=== PATIENT | female | born 1980 | race Hispanic/Latino ===

== ENCOUNTER 2017-10-26 08:54 | Outpatient (CLI) | payer BC ==
[~2017-10-26 08:54] MED LIST: Iopamidol 300 61% 30 ML VIAL ONE
--- NOTE | 2017-10-26 12:05 | RAD ---
HYSTEROSALPINGOGRAM: Date: 10/26/17 HISTORY: Procreative management. Difficulty getting . EXPOSURE: 489.1 mGy*cm^2. 1.1 minute fluoro time. FINDINGS: A hysterosalpingogram was performed in the retrograde fashion. Contrast opacifies a normal appearing endometrium, as well as lower uterine segment. The right fallopian tube has an overall normal appeara nce. There is free spillage of contrast into the right hemipelvis. The left fallopian tube is truncat ed and has a bulbous collection of contrast. The patient does have a history of intervention in the l eft adnexa. IMPRESSION: Patent right fallopian tube with free spillage into the right hemipelvis. POS: [facility]
== END 2017-10-26 08:55 | disposition home or self-care (01) ==
LOC: RAD 08:54
PROVIDERS: ATTEND Obstetrics & Gynecology
DX: Z31.9 Encounter for procreative management, unspecified (principal)
CPT/HCPCS: 58340; 74740

== ENCOUNTER 2019-08-11 12:01 | Emergency (ER) | payer BC ==
[2019-08-11 12:38] LABS: #Basophils 0.1 thou/uL (0.0-0.2); #Eosinphils 0.1 thou/uL (0.0-0.7); #Lymphocytes 3.5 thou/uL (1.20-3.40); #Monocytes 0.6 thou/uL (0.11-0.59); #Neutrophils 3.7 thou/uL (1.40-6.50); %Basophils 1.2 % (0.0-1.0); %Eosinophils 1.8 % (0.0-10.0); Hemoglobin 14.6 g/dL (12.0-16.0); Mean Corpuscular HGB CONC 33.6 g/dL (32.0-36.0); Mean Corpuscular Hemoglobin 29.8 pg (27.0-31.0); Mean Corpuscular Volume 88.6 fL (78.0-98.0); Platelet Count 259 thou/uL (130-400); RBC Distribution Width 11.5 % (11.5-14.5); Red Blood Cell (RBC) Count 4.91 mill/uL (4.20-5.40)
--- NOTE | 2019-08-11 13:01 | RAD ---
AP CHEST: HISTORY: Chest pain. FINDINGS: Lung serrano are clear. Heart and mediastinum appear normal. Vasculature is normal. IMPRESSION: Negative portable chest. POS: [facility]
[2019-08-11 13:03] LABS: ALT (SGPT) 45 U/L (8-55); AST (SGOT) 30 U/L (5-34); Albumin 4.2 g/dL (3.5-5.0); Alkaline Phosphatase 67 U/L (40-110); Anion Gap 9 mmol/L (10-20); BUN (Urea Nitrogen) 7 mg/dL (7.0-18.7); Bilirubin, Total 0.4 mg/dL (0.2-1.2); Calc. Creatinine Clearance 0 mL/min (70-130); Calcium 8.9 mg/dL (7.8-10.44); Carbon Dioxide 31 mmol/L (22-29); Chloride 101 mmol/L (98-107); Estimated GFR-MDRD Greater than 90; Globulin 3.1 g/dL (2.4-3.5); Glucose 86 mg/dL (70-105); Potassium 3.5 mmol/L (3.5-5.1); Protein, Total 7.3 g/dL (6.0-8.3); Sodium 137 mmol/L (136-145)
--- NOTE | 2019-08-15 14:29 | EKG ---
Test Reason : Blood Pressure : / mmHG Vent. Rate : 068 BPM Atrial Rate : 068 BPM P-R Int : 158 ms QRS Dur : 080 ms QT Int : 430 ms P-R-T Axes : 033 048 024 degrees QTc Int : 457 ms Normal sinus rhythm Normal ECG Confirmed by JUDY COOMBS, RAY ([id number]), editorial director SAJI TRAVIS ([id number]) on 08/15/2019 2:29:17 PM Referred By: Confirmed By:RAY KIM MD
== END 2019-08-11 14:40 | disposition home or self-care (01) ==
LOC: ERS 12:01
DX: R07.89 Other chest pain (principal); E78.00 Pure hypercholesterolemia, unspecified
CPT/HCPCS: 71045; 80053; 84484; 85025; 93005